=== PATIENT | male | born 1990 | race Caucasian/White ===

== ENCOUNTER 2021-04-04 11:54 | Emergency (ER) | payer BC ==
[2021-04-04] MEDS ORDERED: Sodium Chloride 0.9% 1000 ML 1,000 ML IV STA (12:38)
[2021-04-04] MEDS ORDERED: Zofran 4 MG/2 ML VIAL IV ONE (12:38)
[2021-04-04] MEDS ORDERED: Reglan 10 MG/2 ML IV ONE (12:49)
[2021-04-04] MEDS ORDERED: TORAdol 30 mg Injection IV ONE (12:49)
[2021-04-04] MEDS ORDERED: BENADRYL 50 MG/ML IV ONE (12:50)
[2021-04-04] MEDS ORDERED: Reglan 10 MG/2 ML ONE (12:51)
[2021-04-04] MEDS ORDERED: TORAdol 30 mg Injection ONE (12:51)
[2021-04-04] MEDS ORDERED: BENADRYL 50 MG/ML ONE (12:51)
[2021-04-04] MEDS ORDERED: Sodium Chloride 0.9% 1000 ML 1,000 ML ONE (12:51)
[2021-04-04 13:06] LABS: Hemoglobin 13.9 gm/dl (12.5-18.0); Mean Cell Volume 88.4 fl (78-100); Mean Corpuscular Hemoglobin 29.3 pg (26-32); Mean Corpuscular Hgb Concent. 33.1 g/dl (32-36); Mean Platelet Volume 10.3 fl (7.5-11.0); Platelet Count 310 K/mm3 (150-450); Red Blood Count 4.75 M/mm3 (4.1-5.6); Red Cell Distribution Width 12.9 % (11.5-14.0); White Blood Count 10.2 K/mm3 (4.0-10.5)
[2021-04-04 13:16] LABS: ALBUMIN 3.8 g/dL (3.5-5.0); ALKALINE PHOSPHATASE 65 U/L (38-126); BLOOD UREA NITROGEN 12 mg/dL (9-20); CHLORIDE 105 mmol/L (98-107); Calcium 8.9 mg/dL (8.4-10.2); Carbon Dioxide 30 mmol/L (22-30); Creatinine 1 0.82 mg/dL (0.66-1.25); EST GLOMERULAR FILTRATION RATE > 60.0 ML/MIN; Glucose 111 mg/dL (74-106); LIPASE 127 U/L (23-300); Potassium 4.4 mmol/L (3.5-5.1); SGOT/AST 81 U/L (17-59); SGPT/ALT 178 U/L (0-50); SODIUM 142 mmol/L (137-145); Total Protein 6.9 g/dL (6.3-8.2)
[2021-04-04 13:18] LABS: Appearance CLEAR (CLEAR); Bilirubin NEGATIVE (NEGATIVE); Blood NEGATIVE Ery/ul (0-5); Glucose NEGATIVE (NEGATIVE); Hyaline Casts 0-2 /LPF (0-2); Ketones NEGATIVE (NEGATIVE); Leukocyte Esterase NEGATIVE (NEGATIVE); Mucus MODERATE /HPF (NEGATIVE); Nitrite NEGATIVE (NEGATIVE); Protein,Urine Dip 30 (Negative); Specific Gravity 1.025 (1.005-1.025); Urobilinogen NEGATIVE mg/dL (0-1); WBC 0-2 /HPF (0-5)
[2021-04-04 14:01] LABS: ATYPICAL LYMPHS 1 %; BAND 2 % (0.0-2.0); Eosinophil 2 % (0.00-3.0); Lymphocytes 17 % (24-44); Monocyte 3 % (0.0-12.0); Neutrophils 75 % (36.-66.); Platelet Estimate NORMAL (NORMAL); Total Cells Counted 100
[2021-04-04 14:03] LABS: Absolute Neutrophil Ct (ANC) 7.85 (1.4-6.9)
[2021-04-04 14:27] VITALS: BP 129/91; PULSE 76; O2SAT 96
--- NOTE | 2021-04-04 14:46 | ERPHSYRPT ---
- History of Present Illness Time Seen by Provider: 04/04/21 12:45 Source: patient Exam Limitations: no limitations Patient Subjective Stated Complaint: body pain/fatigue, headache, diarrhea, N&V, shortness of breath Triage Nursing Assessment: Pt brought to the ER by his father in law, hypertensive, rates head pain as 8/10, pain to all quadrants with palpatation, pulses normal, skin n/w/d, doesn't appear to be in any distress Physician History: 30-year-old unvaccinated against COVID-19 presented in the ER with chief complaint of multiple flulike symptoms with headache, nonproductive cough, nausea with one episode of vomiting and multiple episodes of loose stool with occasional abdominal discomfort. Denies any chest pain or palpitations. Subjective feeling of fever and chills. Denies any abdominal pain at present. No shortness of breath at all. Timing/Duration: day(s) (5), intermittent, gradual onset, worse Cough Quality/Degree: mild, dry cough Possible Cause: illness exposure Modifying Factors: Improves With: coughing Associated Symptoms: chills, cough, headache, muscle aches, nasal congestion, sore throat Allergies/Adverse Reactions: No Known Drug Allergies Allergy (Verified 04/04/21 12:16) Travel Risk - International Travel Have you traveled outside of the country in past 3 weeks: No - Coronavirus Screening Symptoms: Fever, Shortness of Breath, Vomiting/Diarrhea, Loss of Taste or Smell, Headaches/Body Aches/Fatigue - Vaccine Status Have you recieved a Covid-19 vaccination: No - Review of Systems Constitutional: Fever, Chills, Fatigue, Weakness Eyes: No Symptoms Ears, Nose, & Throat: No Symptoms Respiratory: Cough Cardiac: No Symptoms Abdominal/Gastrointestinal: Nausea, Vomiting, Diarrhea Genitourinary Symptoms: No Symptoms Musculoskeletal: Myalgias Skin: No Symptoms Neurological: Headache Psychological: No Symptoms Endocrine: No Symptoms Hematologic/Lymphatic: No Symptoms Immunological/Allergic: No Symptoms - Past Medical History Pertinent Past Medical History: Yes Musculoskeletal History: Rheumatoid Arthritis - Past Surgical History Past Surgical History: Yes Musculoskeletal: Orthopedic Surgery - Social History Smoking Status: Never smoker Exposure to second hand smoke: No Drug Use: none Patient Lives Alone: No - Nursing Vital Signs Nursing Vital Signs: Initial Vital Signs Temperature 96.6 F 04/04/21 12:07 Pulse Rate 70 04/04/21 12:07 Respiratory Rate 22 04/04/21 12:07 Blood Pressure 149/92 04/04/21 12:07 O2 Sat by Pulse Oximetry 100 04/04/21 12:07 Pain Scale Pain Intensity 0 - Physical Exam General Appearance: no apparent distress, alert Eye Exam: PERRL/EOMI, eyes nml inspection Ears, Nose, Throat Exam: normal ENT inspection, TMs normal, pharynx normal Neck Exam: normal inspection, non-tender, supple, full range of motion Respiratory Exam: normal breath sounds, lungs clear Cardiovascular Exam: regular rate/rhythm, normal heart sounds Gastrointestinal/Abdomen Exam: soft, normal bowel sounds, No tenderness, No distention, No guarding Back Exam: normal inspection, normal range of motion Extremity Exam: normal inspection, normal range of motion Neurologic Exam: alert, oriented x 3, cooperative, 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 Skin Exam: normal color SpO2 Interpretation: normal SpO2: 96 O2 Delivery: Room Air Ordered Tests: Active Orders 24 hr Category Date Time Status IV Insertion STAT Care 04/04/21 12:38 Active CBC W DIFF Stat Lab 04/04/21 12:45 Completed CMP Stat Lab 04/04/21 12:45 Completed LIPASE Stat Lab 04/04/21 12:45 Completed Lactic Acid Stat Lab 04/04/21 12:38 Completed Manual Differential NC Stat Lab 04/04/21 12:45 Completed UA W/RFX UR CULTURE Stat Lab 04/04/21 13:12 Completed Medication Summary Discontinued Medications Generic Name Dose Route Start Last Admin Trade Name Freq PRN Reason Stop Dose Admin Diphenhydramine HCl 25 mg 04/04/21 12:50 04/04/21 12:55 Diphenhydramine Hcl 50 Mg/Ml Vial IV 04/04/21 12:51 25 mg STAT ONE Administration Diphenhydramine HCl Confirm 04/04/21 12:51 Diphenhydramine Hcl 50 Mg/Ml Vial Administered 04/04/21 12:52 Dose 50 mg .ROUTE .STK-MED ONE Sodium Chloride 1,000 mls @ 999 mls/hr 04/04/21 12:38 04/04/21 13:55 Sodium Chloride 0.9% 1000 Ml IV 04/04/21 13:38 Infused .Q1H1M STA Infusion Sodium Chloride Confirm 04/04/21 12:51 Sodium Chloride 0.9% 1000 Ml Administered 04/04/21 12:52 Dose 1,000 mls @ ud .ROUTE .STK-MED ONE Ketorolac Tromethamine 30 mg 04/04/21 12:49 04/04/21 12:55 Ketorolac Tromethamine 30 Mg/Ml Inj IV 04/04/21 12:50 30 mg STAT ONE Administration Ketorolac Tromethamine Confirm 04/04/21 12:51 Ketorolac Tromethamine 30 Mg/Ml Inj Administered 04/04/21 12:52 Dose 30 mg .ROUTE .STK-MED ONE Metoclopramide HCl 10 mg 04/04/21 12:49 04/04/21 12:55 Metoclopramide Hcl 10 Mg/2 Ml Vial IV 04/04/21 12:50 10 mg STAT ONE Administration Metoclopramide HCl Confirm 04/04/21 12:51 Metoclopramide Hcl 10 Mg/2 Ml Vial Administered 04/04/21 12:52 Dose 10 mg .ROUTE .STK-MED ONE Ondansetron HCl 4 mg 04/04/21 12:38 04/04/21 12:49 Ondansetron Hcl 4 Mg/2 Ml Vial IV 04/04/21 12:39 Not Given STAT ONE Lab/Rad Data: Laboratory Result Diagrams 04/04/21 12:45 04/04/21 12:45 Laboratory Results 04/04/21 04/04/21 04/04/21 Range/Units 13:12 12:45 12:45 WBC 10.2 (4.0-10.5) K/mm3 RBC 4.75 (4.1-5.6) M/mm3 Hgb 13.9 (12.5-18.0) gm/dl Hct 42.0 (42-50) % MCV 88.4 (78-100) fl MCH 29.3 (26-32) pg MCHC 33.1 (32-36) g/dl RDW 12.9 (11.5-14.0) % Plt Count 310 (150-450) K/mm3 MPV 10.3 (7.5-11.0) fl Absolute Granulocytes 7.85 H (1.4-6.9) Segmented Neutrophils 75 H (36.-66.) % Band Neutrophils 2 (0.0-2.0) % Lymphocytes (Manual) 17 L (24-44) % Monocytes (Manual) 3 (0.0-12.0) % Eosinophils (Manual) 2 (0.00-3.0) % Atypical Lymphocytes 1 % Platelet Estimate NORMAL (NORMAL) RBC Morphology NORMAL Sodium 142 (137-145) mmol/L Potassium 4.4 (3.5-5.1) mmol/L Chloride 105 (98-107) mmol/L Carbon Dioxide 30 (22-30) mmol/L Anion Gap 11.0 (5-15) MEQ/L BUN 12 (9-20) mg/dL Creatinine 0.82 (0.66-1.25) mg/dL Estimated GFR > 60.0 ML/MIN Glucose 111 H (74-106) mg/dL Lactic Acid (0.4-2.0) Calcium 8.9 (8.4-10.2) mg/dL Total Bilirubin 0.60 (0.2-1.3) mg/dL AST 81 H (17-59) U/L ALT 178 H (0-50) U/L Alkaline Phosphatase 65 (38-126) U/L Serum Total Protein 6.9 (6.3-8.2) g/dL Albumin 3.8 (3.5-5.0) g/dL Lipase 127 (23-300) U/L Urine Color YELLOW (YELLOW) Urine Appearance CLEAR (CLEAR) Urine pH 7.0 (5-6) Ur Specific [place] 1.025 (1.005-1.025) Urine Protein 30 (Negative) Urine Ketones NEGATIVE (NEGATIVE) Urine Blood NEGATIVE (0-5) Earl/ul Urine Nitrite NEGATIVE (NEGATIVE) Urine Bilirubin NEGATIVE (NEGATIVE) Urine Urobilinogen NEGATIVE (0-1) mg/dL Ur Leukocyte Esterase NEGATIVE (NEGATIVE) Urine WBC (Auto) 0-2 (0-5) /HPF Urine RBC (Auto) NONE (0-2) /HPF U Hyaline Cast (Auto) 0-2 (0-2) /LPF U Epithel Cells (Auto) NONE (FEW) /HPF Urine Bacteria (Auto) NONE (NEGATIVE) /HPF Urine Mucus (Auto) MODERATE (NEGATIVE) /HPF Urine Culture Reflexed NO (NO) Urine Glucose NEGATIVE (NEGATIVE) mg/dL 24/21 Range/Units 12:38 WBC (4.0-10.5) K/mm3 RBC (4.1-5.6) M/mm3 Hgb (12.5-18.0) gm/dl Hct (42-50) % MCV (78-100) fl MCH (26-32) pg MCHC (32-36) g/dl RDW (11.5-14.0) % Plt Count (150-450) K/mm3 MPV (7.5-11.0) fl Absolute Granulocytes (1.4-6.9) Segmented Neutrophils (36.-66.) % Band Neutrophils (0.0-2.0) % Lymphocytes (Manual) (24-44) % Monocytes (Manual) (0.0-12.0) % Eosinophils (Manual) (0.00-3.0) % Atypical Lymphocytes % Platelet Estimate (NORMAL) RBC Morphology Sodium (137-145) mmol/L Potassium (3.5-5.1) mmol/L Chloride (98-107) mmol/L Carbon Dioxide (22-30) mmol/L Anion Gap (5-15) MEQ/L BUN (9-20) mg/dL Creatinine (0.66-1.25) mg/dL Estimated GFR ML/MIN Glucose (74-106) mg/dL Lactic Acid 1.2 (0.4-2.0) Calcium (8.4-10.2) mg/dL Total Bilirubin (0.2-1.3) mg/dL AST (17-59) U/L ALT (0-50) U/L Alkaline Phosphatase (38-126) U/L Serum Total Protein (6.3-8.2) g/dL Albumin (3.5-5.0) g/dL Lipase (23-300) U/L Urine Color (YELLOW) Urine Appearance (CLEAR) Urine pH (5-6) Ur Specific [place] (1.005-1.025) Urine Protein (Negative) Urine Ketones (NEGATIVE) Urine Blood (0-5) Earl/ul Urine Nitrite (NEGATIVE) Urine Bilirubin (NEGATIVE) Urine Urobilinogen (0-1) mg/dL Ur Leukocyte Esterase (NEGATIVE) Urine WBC (Auto) (0-5) /HPF Urine RBC (Auto) (0-2) /HPF U Hyaline Cast (Auto) (0-2) /LPF U Epithel Cells (Auto) (FEW) /HPF Urine Bacteria (Auto) (NEGATIVE) /HPF Urine Mucus (Auto) (NEGATIVE) /HPF Urine Culture Reflexed (NO) Urine Glucose (NEGATIVE) mg/dL - Progress Progress: improved Air Movement: good Progress Note: 04/04/21 14:43 30-year-old is evaluated for flulike symptoms. Given symptomatic treatment, headache is improved. No more nausea or vomiting. No episode of loose stool while in the ER. No abdominal tenderness at all. Lungs bilateral clear to auscultation. Grossly unremarkable work-up. Blood Culture(s) Obtained: No Antibiotics given: No Counseled pt/family regarding: lab results, diagnosis, need for follow-up - Departure Departure Disposition: Home Clinical Impression: Viral gastroenteritis, Viral syndrome Condition: Stable Critical Care Time: No Referrals: DOCTOR,NO FAMILY [Primary Care Provider] - Follow up/PCP as directed CORNELL JOSE [ACTIVE STAFF] - Follow Up with PCP/3 days Instructions: Viral Gastroenteritis, Adult (DC) Additional Instructions: Follow contact/droplet precautions until your COVID-19 test is back. Take Zofran as needed. Drink plenty of fluids to keep yourself well-hydrated. Follow-up with your primary care for reevaluation. Prescriptions: Ondansetron ODT 4 MG [Zofran Odt 4 mg] 1 ea PO QIDPRN PRN #7 tablet PRN Reason: n/v
== END 2021-04-04 14:57 | disposition home or self-care (01) ==
LOC: ED 11:54
DX: A08.4 Viral intestinal infection, unspecified (principal); B34.9 Viral infection, unspecified; R51.9 Headache, unspecified; R11.2 Nausea with vomiting, unspecified; R19.7 Diarrhea, unspecified; R09.81 Nasal congestion
CPT/HCPCS: 36000; 36415; 80053; 81001; 83605; 83690; 85025; 96374; 96375; 99284; U0003; J1200; J1885